=== PATIENT | male | born 1940 | race Caucasian/White ===

== ENCOUNTER → 2017-12-03 | Outpatient (CLI) | payer BC ==
[~2017-12-03] MED LIST: ASPI81EC PO; ATOR10 PO; B-COMPLEX WITH1 EAC1 PO; Bactrim Ds Tab1 EACH PO; CARV6.25 PO; CEPH500 PO; CYCL10 PO; Coq-10100 MG PO; DANDELION; Ginger250 MG PO; IODINE PO; MAGGLU250 PO; OREGANO PO; OSTERA TABLET1 EACH PO; PRED10 PO; QUIN10 PO; SOTO80 PO; SPIR25 PO; XARELTO20 MG PO; [UNRECOGNIZED DRUG - OTHER]
== END | disposition home or self-care (01) ==
LOC: LAB SHORT 09:18 → LAB 09:18
DX: R30.0 Dysuria (principal)
CPT/HCPCS: 87086

== ENCOUNTER 2018-02-08 06:54 | Emergency (ER) | payer BC ==
[~2018-02-08] VITALS: Ht 182.9 cm; Wt 87.1 kg
== END 2018-02-08 08:20 | disposition home or self-care (01) ==
LOC: ER 06:54
DX: R33.9 Retention of urine, unspecified (principal); I10 Essential (primary) hypertension; I48.91 Unspecified atrial fibrillation; I25.2 Old myocardial infarction; Z88.0 Allergy status to penicillin; Z79.899 Other long term (current) drug therapy
CPT/HCPCS: 51702; 51798; 99282

== ENCOUNTER → 2021-12-06 | Outpatient (CLI) | payer BC ==
[~2021-12-06] MED LIST changes: +METO50ER PO
== END | disposition home or self-care (01) ==
LOC: LAB 13:30 → LAB SHORT 13:30
DX: R21 Rash and other nonspecific skin eruption (principal)
CPT/HCPCS: 87070; 87205

== ENCOUNTER 2022-06-20 06:32 | Day surgery (SDC) | payer OTHER ==
[~2022-06-20] VITALS: Ht 182.9 cm; Wt 90.0 kg
[~2022-06-20 06:32] MED LIST changes: +ATOR40TA PO; +ENTRESTO 97 MG1 EACH PO; +METO100ER PO
--- NOTE | 2022-06-20 12:11 | NUR ---
PT AMBULATES TO RESTROOM AND BACK WITHOUT DIFF. VSS. NADN. PT RIGHT FEMORAL SITE & R VENOUS AC REMAINS CLEAR. NO BLEEDING OR HEMATOMA. DRESSING SELF WITHOUT DIFF. PT IV DC'D. CATH INTACT. PRESSURE DSG APPLIED. PT VERBALIZES UNDERSTANDING WRITTEN AND VERBAL INSTRUCTIONS. PT DC TO HOME VIA S/O BY SHARA
== END 2022-06-20 12:18 | disposition home or self-care (01) ==
LOC: MHTC 06:32
DX: I25.810 Atherosclerosis of coronary artery bypass graft(s) without angina pectoris (principal); E78.5 Hyperlipidemia, unspecified; I10 Essential (primary) hypertension; I48.0 Paroxysmal atrial fibrillation
CPT/HCPCS: 76937; 93457; 99152; A9270; C1769; C1894; J1644; J2250; J3010; J7030; J7050; Q9967

== ENCOUNTER 2022-12-08 15:41 | Emergency (ER) | payer BC ==
[~2022-12-08] VITALS: Ht 182.9 cm; Wt 86.2 kg
[2022-12-08 17:56] LABS: BASOPHILS ABSOLUTE AUTO 0.02 K/mm3 (0.00-0.23); BASOPHILS PERCENT AUTO 0 % (0-2); EOSINOPHILS ABSOLUTE AUTO 0.04 K/mm3 (0.00-0.68); EOSINOPHILS PERCENT AUTO 1 % (0-6); Hematocrit 39.1 % (37.0-53.0); Hemoglobin 13.6 g/dL (13.5-17.5); IMMATURE GRAN ABSOLUTE AUTO 0.01 K/mm3 (0.00-0.10); IMMATURE GRAN PERCENT AUTO 0 % (0-1); LYMPHOCYTES ABSOLUTE AUTO 0.81 K/mm3 (0.84-5.20); LYMPHOCYTES PERCENT AUTO 13 % (21-46); MONOCYTES PERCENT AUTO 11 % (4-13); Mean Corpuscular HGB Conc 34.8 g/dL (31.5-36.5); Mean Corpuscular Volume 95 fL (80-100); NEUTROPHILS PERCENT AUTO 75 % (41-73); Platelet Count 121 K/mm3 (150-400); RDW Coefficient Variation 13.5 % (11.7-14.2); Red Blood Cell Count 4.12 M/mm3 (4.30-5.90); White Blood Cell Count 6.28 K/mm3 (4.00-11.30)
[2022-12-08 18:04] LABS: Albumin, Blood 3.4 g/dL (3.4-5.0); Albumin/Globulin Ratio 1.1 (0.8-1.8); Bilirubin, Total 1.1 mg/dL (0.1-1.0); Bun/Creatinine Ratio 22.4 (12.0-20.0); Creatinine, Blood 1.34 mg/dL (0.60-1.20); Globulin, Blood 3.1 g/dL (2.2-4.0); Potassium, Blood 3.4 mmol/L (3.5-5.5); Total Protein, Blood 6.5 g/dL (6.4-8.2)
[2022-12-08] MEDS ORDERED: TAMS.4ER PO (18:04)
[2022-12-08] MEDS ORDERED: SOAANZ20 M3 PO (18:05)
[2022-12-08 20:00] VITALS: BP 123/86
[2022-12-08] MEDS ORDERED: TORSE20 PO (20:26)
== END 2022-12-08 21:05 | disposition home or self-care (01) ==
LOC: ER 15:41
PROVIDERS: Physician Assistant
DX: I11.0 Hypertensive heart disease with heart failure (principal); I50.23 Acute on chronic systolic (congestive) heart failure; I25.2 Old myocardial infarction; I48.91 Unspecified atrial fibrillation; I25.10 Atherosclerotic heart disease of native coronary artery without angina pectoris; I25.5 Ischemic cardiomyopathy; Z79.01 Long term (current) use of anticoagulants; Z79.899 Other long term (current) drug therapy; Z85.46 Personal history of malignant neoplasm of prostate; Z95.1 Presence of aortocoronary bypass graft; Z95.0 Presence of cardiac pacemaker
CPT/HCPCS: 71046; 80053; 83735; 83880; 84484; 85025; 93005; 93010; 96374; 99284-25; A9270; J1940

== ENCOUNTER 2023-03-12 22:58 | Inpatient (IN) | payer OTHER, BC ==
[~2023-03-12] VITALS: Ht 185.4 cm; Wt 86.0 kg
[~2023-03-12 22:58] MED LIST changes: +ENTRESTO 24 MG1 EACH PO; -ENTRESTO 97 MG1 EACH PO; +SOAANZ20 M3 PO; +TAMS.4ER PO; +TORSE20 PO
[2023-03-12 23:33] LABS: BASOPHILS ABSOLUTE AUTO 0.03 K/mm3 (0.00-0.23); BASOPHILS PERCENT AUTO 1 % (0-2); EOSINOPHILS ABSOLUTE AUTO 0.04 K/mm3 (0.00-0.68); EOSINOPHILS PERCENT AUTO 1 % (0-6); Hematocrit 45.1 % (37.0-53.0); Hemoglobin 15.5 g/dL (13.5-17.5); IMMATURE GRAN ABSOLUTE AUTO 0.01 K/mm3 (0.00-0.10); IMMATURE GRAN PERCENT AUTO 0 % (0-1); LYMPHOCYTES ABSOLUTE AUTO 1.25 K/mm3 (0.84-5.20); LYMPHOCYTES PERCENT AUTO 19 % (21-46); MONOCYTES ABSOLUTE AUTO 0.86 K/mm3 (0.16-1.47); MONOCYTES PERCENT AUTO 13 % (4-13); Mean Corpuscular HGB 34.4 pg (26.0-34.0); Mean Corpuscular HGB Conc 34.4 g/dL (31.5-36.5); Mean Corpuscular Volume 100 fL (80-100); Mean Platelet Volume 11.1 fL (9.1-12.4); NEUTROPHILS ABSOLUTE AUTO 4.26 K/mm3 (1.96-9.15); NEUTROPHILS PERCENT AUTO 66 % (41-73); Platelet Count 146 K/mm3 (150-400); RDW Coefficient Variation 15.9 % (11.7-14.2); RDW Standard Deviation 58.1 fL (35.1-46.3); White Blood Cell Count 6.45 K/mm3 (4.00-11.30)
[2023-03-12] MEDS ORDERED: SOAANZ20 M3 PO (23:34)
[2023-03-12] MEDS ORDERED: SPIRONOLACTONE25 MG PO (23:35)
[2023-03-13] VITALS (11 sets, daily range): BP systolic 98–132; BP diastolic 73–96
[2023-03-13 00:04] LABS: Albumin, Blood 3.5 g/dL (3.4-5.0); Bun/Creatinine Ratio 19.4 (12.0-20.0); Calcium, Blood 9.2 mg/dL (8.5-10.1); Creatinine, Blood 1.7 mg/dL (0.60-1.20); Globulin, Blood 3.6 g/dL (2.2-4.0); Potassium, Blood 3.4 mmol/L (3.5-5.5); Total Protein, Blood 7.1 g/dL (6.4-8.2)
[2023-03-13 00:52] LABS: Base Excess Venous 8.8 mmol/L; Bicarbonate Venous 30.4 mmol/L (24.0-30.0); PCO2 Venous 47.4 mmHg (38-42); pH Blood Venous 7.45 (7.34-7.37)
[2023-03-13 00:54] LABS: Phosphorus, Blood 3.7 mg/dL (2.5-4.9); Thyroid Stimulating Hormone 5.09 uIU/mL (0.360-4.800); Uric Acid, Blood 13.1 mg/dL (3.5-7.2)
[2023-03-13 01:13] LABS: Source, Urine Clean Catch
[2023-03-13 01:19] LABS: Bilirubin, Urine Neg (Neg); Blood, Urine 2+ (Neg); Glucose Qualitative, Urine Neg (Neg); Ketones, Urine Neg (Neg); Leukocyte Esterase, Urine 1+ (Neg); Nitrite, Urine Neg (Neg); Protein, Urine 1+ (Neg); Specific Gravity, Urine 1.015 (1.003-1.022); Urobilinogen, Urine NORM (Normal)
[2023-03-13 01:25] LABS: Appearance, Urine Clear (Clear); Bacteria Few /hpf; Color, Urine Yellow (P-Yellow); Squamous Epithelial Cells Few /hpf (Few); White Blood Cells, Urine 0-2 /hpf (0-5)
[2023-03-13 05:00] LABS: BASOPHILS ABSOLUTE AUTO 0.04 K/mm3 (0.00-0.23); BASOPHILS PERCENT AUTO 1 % (0-2); EOSINOPHILS ABSOLUTE AUTO 0.04 K/mm3 (0.00-0.68); EOSINOPHILS PERCENT AUTO 1 % (0-6); Hematocrit 40.2 % (37.0-53.0); Hemoglobin 13.9 g/dL (13.5-17.5); IMMATURE GRAN ABSOLUTE AUTO 0.02 K/mm3 (0.00-0.10); IMMATURE GRAN PERCENT AUTO 0 % (0-1); LYMPHOCYTES PERCENT AUTO 14 % (21-46); MONOCYTES ABSOLUTE AUTO 0.71 K/mm3 (0.16-1.47); MONOCYTES PERCENT AUTO 11 % (4-13); Mean Corpuscular HGB 34.8 pg (26.0-34.0); Mean Corpuscular HGB Conc 34.6 g/dL (31.5-36.5); Mean Corpuscular Volume 101 fL (80-100); Mean Platelet Volume 10.9 fL (9.1-12.4); NEUTROPHILS ABSOLUTE AUTO 4.54 K/mm3 (1.96-9.15); NEUTROPHILS PERCENT AUTO 73 % (41-73); Platelet Count 133 K/mm3 (150-400); RDW Coefficient Variation 15.8 % (11.7-14.2); RDW Standard Deviation 58.1 fL (35.1-46.3); White Blood Cell Count 6.25 K/mm3 (4.00-11.30)
[2023-03-13 05:16] LABS: Albumin, Blood 3.3 g/dL (3.4-5.0); Bilirubin, Total 1.6 mg/dL (0.1-1.0); Bun/Creatinine Ratio 19.9 (12.0-20.0); Calcium, Blood 9.1 mg/dL (8.5-10.1); Creatinine, Blood 1.71 mg/dL (0.60-1.20); Globulin, Blood 3.3 g/dL (2.2-4.0); Potassium, Blood 3.3 mmol/L (3.5-5.5); Total Protein, Blood 6.6 g/dL (6.4-8.2)
[2023-03-13] MEDS ORDERED: METO50ER PO (05:54)
[2023-03-13] MEDS ORDERED: JARDIANCE10 MG PO (05:56)
[2023-03-13 08:32] LABS: International Normalized Ratio 1.66; Prothrombin Time Results 16.9 Sec (9.7-11.5)
--- NOTE | 2023-03-13 14:22 | NUR ---
Shift Summary Pt alert and oriented X4; calm and cooperative with care. Pt resting in bed, sitting "as far up as possible". Pt placed on 2l o2 via nc this am. Pt denies pain, chest pain, sob, nausea, dizziness/numbness. Tele v paced, bp stable. Abd soft, nontender. Edema noted from ble up to bilateral flanks. Other vss. Minimal urine output noted, bladderscan <400cc, Dr Gaviria notified, new order entered. Report given to rn assuming care of patients.
--- NOTE | 2023-03-13 15:30 | NUR ---
ASSUMED CARE REPORT TAKEN FROM LINH MERCADO. THIS RN ASSUMED CARE OF PT AT 1415. VSS AT TIME OF TRANSFER OF CARE. PT RESTING IN BED. SPO2 >90% ON 2L NC. V PACED ON TELEMETRY, BP STABLE. SPOUSE AT BEDSIDE. CALL LIGHT WITHIN REACH, BED IN LOWEST POSITION.
--- NOTE | 2023-03-13 17:12 | NUR ---
END OF SHIFT NOTE PT A&OX4 T/O SHIFT, PLEASANT AND COOPERATIVE WITH CARE. CALLS APPROPRIATELY AND MAKES NEEDS KNOWN TO STAFF. HR 80-90'S, PACED. SBP 104 THIS AFTERNOON. SPO2 >95% ON 2L O2 VIA NC; PT REPORTS FEELING SOB WITH EXERTION, ABLE TO RECOVER W/O DESATS. HOB ELEVATED. EDEMA NOTED ON BLE UP TO FLANKS, BUMEX ADMINISTERED PER EMAR. PT ABLE TO VOID IN URINAL W/ MINIMAL ASSISTANCE. SPOUSE AT BEDSIDE. PT RESTING IN BED, DECLINES DINNER AT THIS TIME. BLE SCD'S WORN T/O SHIFT, WOUND DRESSINGS IN PLACE. PT INFORMED THIS RN THAT HE DC'D HIS HOME JARDIANCE FEELING LIKE IT WAS CAUSING HIM TO HALLUCINATE; SPOUSE STATES THAT HALLUCINATIONS HAVE BEEN PRESENT AFTER DISCONTINUING THE MEDICATION. NO HALLUCINATIONS THIS SHIFT. NO OTHER EVENTS. CALL LIGHT WITHIN REACH, BED IN LOWEST POSITION. WILL REPORT TO ONCOMING NOC RN.
[2023-03-14] VITALS (19 sets, daily range): BP systolic 79–108; BP diastolic 49–80
[2023-03-14 04:34] LABS: Bun/Creatinine Ratio 20.2 (12.0-20.0); Calcium, Blood 8.8 mg/dL (8.5-10.1); Creatinine, Blood 1.63 mg/dL (0.60-1.20); Potassium, Blood 3.3 mmol/L (3.5-5.5)
--- NOTE | 2023-03-14 06:03 | NUR ---
SHIFT SUMMARY ADMIT FOR PLEURAL EFFUSION, 2L O2 NC, BIOX 98%. VENTRICULAR PACED@95. BP WILL SHOW HYPOTENSIVE BUT REBOUNDS WHEN PT AWAKENS. EDEMA TO BL LEGS TO THIGH, SCD TO R LE. BLLE WRAPPED W/ GAUZE, VISIBLE BLISTER TO [employer] [place] AND OPEN AREA THAT APPEARS TO HAVE BEEN A PREVIOUS BLISTER. TENDER TO LE. PT REPORTS UNABLE TO SLEEP LYING DOWN THEREFORE HAS SLEPT W/ HEAD OF BED UP AND TILTED TO SIDE. C/O PAIN TO COCCYX. +LABS GRAM VARIABLE W/ BACILLI ALTHOUGH 2ND CULTURE SHOWN NO GROWTH. PROVIDER NOTIFIED W/ NO NEW ORDERS AT THIS TIME. PT VERY PLEASANT AND COOPERATIVE. CALL LIGHT W/IN REACH. WILL REPORT OFF TO ONCOMING STAFF.
--- NOTE | 2023-03-14 11:04 | NUR ---
MORNING NOTE THIS RN ASSUMED CARE AT APPROX 0715. PT AOX4. PLEASANT, COOPERATIVE WITH CARE. ASKS QUESTIONS NEEDED. VSS. BP SOFT, SBP 100's-110's. MD AWARE. IV BUMEX ADMINISTERED PER EMAR. ALDACTONE HELD PER MD. DENIES CHEST PAIN OR PRESSURE. TELEMETRY SHOWING V PACED 100's-130's. PACER INTERROGATION PERFORMED THIS MORNING. AT APPROX 0920, A 11 BEAT RUN OF VTACH OCCURRED. PT ASYMPTOMATIC. MD NOTIFIED BY THIS RN, NO NEW ORDERS RECEIVED. PT ON 2L VIA NC, SATS >90%. THORACENTESIS PERFORMED THIS MORNING, PO ANTICOAGULANT HELD THIS MORNING. BANDAID IN PLACE, C/D/I. PT IS A 1P ASSIST IN ROOM TO CHAIR OR BSC. HX OF PROSTATE CA, VOIDING SMALL AMOUNTS AT A TIME. ABLE TO USE URINAL INDEPENDENTLY. BM THIS MORNING. BEDBATH CURRENTLY BEING PERFORMED BY PCT. AT BEDSIDE. CALL LIGHT IN REACH.
[2023-03-14 11:13] LABS: Automated BF WBC Count 0.181 K/mm3 (0-999)
[2023-03-14 11:14] LABS: Body Fluid WBC Count 181 /mm3 (0-999)
[2023-03-14 11:20] LABS: Lactate Dehydrogenase, Body Fl 55 U/L; Protein, Body Fluid 1.6 g/dL
--- NOTE | 2023-03-14 12:08 | NUR ---
UPDATE THIS RN RCVD CALL FROM MD PEGUERO WITH ORDER TO PERFORM BLADDER SCAN DUE TO CONCERN FOR RETENTION, NOTIFY IF GREATER THAN 350ML. THIS RN PERFORMED BLADDER SCAN, 400ML SHOWN. MD PEGUERO CONTACTED, RCVD ORDER TO PERFORM A STRAIGHT CATH PROCEDURE NOW, TO PERFORM A BLADDER SCAN Q6HRS, AND TO INSERT LATHAM CATHETER IF GREATER THAN >350ML ON NEXT BLADDER SCAN. ALSO NOTIFIED MD THAT HEART RATE IS SUSTAINING 120-130. PT TO START PO METOPROLOL TOMORROW, 03/15. RCVD ORDER TO EDIT METOPROLOL TO START TODAY IF SBP SUSTAINING >100. CURRENT SBP 90's. WILL WAIT TO EDIT ORDER UNTIL SUSTAINING >100 SBP.
[2023-03-14 12:11] LABS: RBC Count, Body Fluid 151 /mm3 (0-0)
[2023-03-14 12:24] LABS: Appearance, Body Fluid Clear (Clear); Color, Body Fluid Yellow (None-Yellow); Total Cell Count, Body Fluid 100
--- NOTE | 2023-03-14 14:49 | NUR ---
UPDATE CURRENT BLOOD PRESSURE 79/67. MAP >60. THIS RN NOTIFIED MD PEGUERO REGARDING SOFT BP. RECEIVED ORDER FOR PO MIDRODRINE TID AND TO HALF THE DOSE OF ENTRESTO.
--- NOTE | 2023-03-14 14:56 | NUR ---
Pt resting on edge of bed upon arrival. Pt's spouse and friends at bedside. Brief review of plan of care. Engaged in therapeutic discussion regarding AD/POLST. Pt and family agreeable to complete. Educated on POLST. Discussed options to choose from and answered questions. Assisted with completing POLST per Pt's request. POLST hung on Pt's white board for hospitalist to sign during rounds. Pt's wishes on POLST are DNR and Limited Treatment. Educated on advanced directive. Instructed on each section to complete and educted on meanings of life support. Pt and spouse will work on completing AD. Listened as Pt expresses concerns regarding billing of his insurance. He reports having a workmans comp claim in [place] which will take care of his hospital stay related to cardiac and instead he regience [employer] keeps getting billed. Instructed concerns will be addressed to Pt advocate or proper channels. Palliative Care will remain available
--- NOTE | 2023-03-14 15:08 | NUR ---
UPDATE ATTEMPTED TO PERFORM STRAIGHT CATH PROCEDURE EARLIER. PT REQUESTING TO WAIT UNTIL AFTER LUNCH. WAS ABLE TO VOID 175ML OUT. 400ML TOTAL NOTED WITH BLADDER SCAN. MULTIPLE VISITORS AND PALLATIVE CARE AT BEDSIDE AFTER LUNCH. THIS RN CHOSE TO WAIT TO PERFORM BLADDER SCAN AND STRAIGHT CATH PROCEDURE UNTIL AFTER VISITORS AND PALLATIVE CARE LEAVE BEDSIDE. BLADDER SCAN PERFORMED, 375 ML NOTED. PT REFUSING STRAIGHT CATH AT THIS TIME, STATING "GIVE ME 30 MINUTES TO REST." WILL RETURN TO BEDSIDE IN APPROX 30 MINUTES TO ATTEMPT TO PERFORM PROCEDURE. MOST CURRENT BLOOD PRESSURE 92/65 (76). PO MIDODRINE ADMINISTERED PER EMAR. WILL CONTINUE TO MONITOR. AT BEDSIDE. CALL LIGHT IN REACH.
--- NOTE | 2023-03-14 15:41 | NUR ---
UPDATE THIS RN AND LINH RN TO BEDSIDE TO PERFORM STRAIGHT CATH PROCEDURE. PT REFUSING, STATING "I'M JUST NOT READY YET." EDUCATION PROVIDED REGARDING URINARY RETENTION. WILL CONTINUE TO ATTEMPT TO PERFORM PROCEDURE PER ORDER. BLOOD PRESSURE OBTAINED. CURRENT BP 96/60 (72). AT BEDSIDE. CALL LIGHT IN REACH.
--- NOTE | 2023-03-14 19:22 | NUR ---
END OF SHIFT NOTE PT REMAINS AOX4. EXPERIENCES EPISODES OF INCREASED ANXIETY. VS REMAIN STABLE. BLOOD PRESSURE SOFT THROUGHOUT, RECEIVED ORDER FOR SCHEDULED MIDODRINE (SEE PREVIOUS NOTE), CURRENT SBP 90's. HEART RATE SUSTAINING 120's-130's AT TIMES. CURRENT RATE 70's-90's. THORACENTESIS PERFORMED TODAY. FOLLOWING THORACENTESIS, WAS ABLE TO TITRATE OXYGEN USE FROM 2L VIA NC TO ROOM AIR, SATS >90%. BM THIS SHIFT. DIFFICULTY VOIDING NOTED THROUGHOUT SHIFT (SEE PREVIOUS NOTES). THIS RN ATTEMPTED STRAIGHT CATH PROCEDURE THIS EVENING, UNABLE TO INSERT DUE TO PROSTATE. MD CONTACTED, RECEIVED ORDER FOR XYLOCAINE AND LATHAM CATHETER PLACEMENT DUE TO DIFFICULT INSERTION. GIBRAN MERCADO ATTEMPTED TO INSERT LATHAM CATHETER, UNABLE TO DO SO. MODERATE BLEEDING AT INSERTION SITE DUE TO MULTIPLE ATTEMPTS. MD CONTACTED WITH UPDATE. MD TO POSSIBLY CONTACT UROLOGY TOMORROW MORNING, NO NEW ORDERS RECEIVED. IV BUMEX HELD DUE TO RETENTION. PT IS A 1P ASSIST IN ROOM. AND MULTIPLE VISITORS AT BEDSIDE THROUGHOUT SHIFT. PALLATIVE CARE AT BEDSIDE THIS SHIFT TO DISCUSS PLAN OF CARE, INCLUDING POLST FORM. CALL LIGHT IN REACH. REPORT GIVEN TO NIGHT RN.
[2023-03-15] VITALS (20 sets, daily range): BP systolic 80–107; BP diastolic 48–75
--- NOTE | 2023-03-15 05:16 | NUR ---
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 PT IS A/OX4. HEART SOUNDS REGULAR, LUNG SOUNDS CLEAR. PT WAS V PACED T/O THE NOC. PT HR WAS 80-130 WHEN AGITATED. PT WAS VERY TEARFUL AT START OF SHIFT DUE TO HAVING TO BE CATHETERIZED. PT STATES THAT "THE MEMBRANE IS BROKEN AND IM SCARED TO PEE". WHEN ASKED IF HE HAD TO PEE PT STATES THAT HE DOESNT YET BUT IS THINKING ABOUT IT AND IT MAKES HIM UPSET. PT ONLY URINATED ABOUT 40CC OF URINE. PT REFUSED TO BE BLADDER SCANNED, STATING IT JOAQUIN WAIT TILL MORNING. PT ALSO REFUSED LABS FOR SAME REASON. PT HAD DECREASED BP DURING THE NOC; WANTED THIS NURSE TO NOT WAKE PT SO HE COULD REST BUT THIS NURSE EDUCATED ABOUT IMPORTANCE OF KEEPING MAP ABOVE 65. HOSPITALIST NOTIFED AND REVIEWED CHART. THIS NURSE HAD LONG TALK WITH PT . PT THINKS CANCER HAS SPEAD AND WANTS MORE TESTING. PT DOESNT HAVE ONCOLOGIST BUT WOULD LIKE ONE. PT STATES THE SHE KNOWS PT POSSIBLY NEEDS SURGERY BUT KNOWS PT MIGHT NOT SURVIVE DUE TO HEART AND WANTS PT TO BE COMFORTABLE. THIS NURSE EDUCATED ABOUT HOSPICE AND PALLITIVE CARE. CONSULT ALREADY IN.
[2023-03-15 09:50] LABS: Bun/Creatinine Ratio 19.8 (12.0-20.0); Creatinine, Blood 1.62 mg/dL (0.60-1.20); Magnesium, Blood 2.1 mg/dL (1.6-2.4); Potassium, Blood 3.5 mmol/L (3.5-5.5)
--- NOTE | 2023-03-15 10:21 | NUR ---
care assumption upon care assumption, pt a&ox4. sp02>90% on ra-2l nc prn. Telemetry shows paced, hr 80's-130's (when up/standing). BP soft. midodrine scheduled. Pt refused labs last night. educated pt on need to know levels, pt agreed to have labs drawn. Pt able to void 140 ml's this am. bladder scan after urination showed >408. MD Villaseñor in room. MD villaseñor w/ orders to hold bumex and states will reach out to urologist. pt in good spirits today. up to b[facility]
--- NOTE | 2023-03-15 14:30 | NUR ---
Brief supportive visit this afternoon with spouse at bedside. Pt resting with his eyes closed with no S/S of distress at this time. Breif review of plan of care with spouse. Palliative Care will remain available
--- NOTE | 2023-03-15 18:39 | NUR ---
shift summary MD Quintero in room this afternoon to consult for suprapubic cath. Consents signed. Pt to procedure this afternoon. Arrived back in room approx 1800. drowsy, but able to answer questions/follow commands. sp02>90% on 2l nc. telemetry showed paced, hr 80's. bp soft. sp w/ dressing, no bleeding, no bruising noted. draining yellow urine to bag. in room. call light in reach.
[2023-03-16] VITALS (10 sets, daily range): BP systolic 85–107; BP diastolic 50–80
[2023-03-16 04:03] LABS: Bun/Creatinine Ratio 18.4 (12.0-20.0); Calcium, Blood 8.5 mg/dL (8.5-10.1); Creatinine, Blood 1.58 mg/dL (0.60-1.20); Potassium, Blood 3.8 mmol/L (3.5-5.5)
--- NOTE | 2023-03-16 04:49 | NUR ---
SHIFT SUMMARY ASSUMED CARE OF PT AT 1900. PT IS A/OX4. PT HAD A BETTER NIGHT. PT SLEPT T/O THE NOC. AT BEDSIDE. SUPRAPUBIC CATH SITE FREE IF REDNESS. URINE WAS DRAINING YELLOW URINE AT START OF SHIFT BUT THEN TURNED RED. PT C/O PAIN AT SITE ONCE, MEDICATED PER EMAR. PT STATED PAIN WAS TOLERABLE BUT ANNOYING. PT BP REMAINS SOFT BUT PT ASYMTOMATIC.
--- NOTE | 2023-03-16 18:15 | NUR ---
NOTE PT AWAKE TELLING STORIES. HEART RATE THIS MORNING BEFORE MORNING MIDODRINE/BUMES 127-PACED. HIS HEART RATE HAS MAINTAINED 100% V PACED IN THE 70'S THE REST OF THE DAY UNTIL DINNER WHEN HE STARTED TELLING STORIES AND LAUGHING. HEART RATE INCREASED TO 127 PACED. VSS FOR PT. RLQ SUPRA PUBIC CATHETER DRAINING DARK, LOAN URINE. THE [place] COLORED URINE FROM THIS MORNING HAS RESOLVED. NEW IV PLACED D/T OLD IV LEAKING. CONTINUE POC.
[2023-03-17] VITALS (16 sets, daily range): BP systolic 86–116; BP diastolic 52–87
--- NOTE | 2023-03-17 06:02 | NUR ---
PT HAS SUPRAPUBIC CATH IN PLACE. PROSTATE CA WITH METS. DR. BAUER HAS PRIORITIES FOR MEDICATIONS IN THE AM; PLEASE CALL MD FOR INSTRUCTIONS TO GIVE MORNING MEDICATIONS, DUE TO BLOOD PRESSURE AND PULSE. BRUISING NOTED
[2023-03-17 08:55] LABS: Bun/Creatinine Ratio 18.8 (12.0-20.0); Calcium, Blood 8.8 mg/dL (8.5-10.1); Creatinine, Blood 1.54 mg/dL (0.60-1.20); Potassium, Blood 3.6 mmol/L (3.5-5.5)
--- NOTE | 2023-03-17 17:59 | NUR ---
SUMMARY- PT A/O X3-4, SBA TO BSC TODAY, SAT UP FOR 30MIN ATTEMPTING TO HAVE BM, THIS TIRED HIM OUT AND HE REFUSED PHYSICAL THEARPY THEREAFTER. PT TOLERATED HALF OF BREAKFAST AND DECLINED LUNCH AND DINNER EXCEPT FOR SIPPING ON ENSURE. STARTING METOPROLOL BACK TODAY FOR RATE CONTROL, AT THE SAME TIME ADDING MIDODRINE TO HOLD BP, HOLDING OFF ON DIURESING TODAY. RATE THIS AM BEFORE METOPROLOL WAS V PACED 130'S, CAME DOWN NICELY PACED 80-90'S ALL DAY. BP SOFT AT 0900 TODAY 30 MIN AFTER METOPROLOL, THAN MANITAINED SBP 110'S AND MAP > 70. PT ON ROOM AIR ALL DAY SATS 94%. LUNGS CTA, SLIGHT DIM BASES. SP DRAINING MED LOAN URINE. STARTED [place] FOR BOWEL ASSIST. LAST BM 03/15, UNABLE TO PASS BM TODAY AFTER ATTEMPTING. IN ROOM ALL DAY, INVOLVED IN CARE.
[2023-03-18] VITALS (10 sets, daily range): BP systolic 88–115; BP diastolic 55–81
--- NOTE | 2023-03-18 04:22 | NUR ---
PT REPORTING AMA @0900 INFORMED BY LAB THAT PT REPORTING LEAVING @0900 THIS MORNING. AFTER DISCUSSION W/ PT REGARDING CONCERNS W/ DISCONTINUED BLOOD THINNERS, HE REPORTS HE CAN SELF MEDICATE AT HOME W/ ASPIRIN. I HAVE ENCOURAGED PT TO DISCUSS OPTIONS AND QUESTIONS W/ PROVIDER PRIOR TO LEAVING. AFTER SPEAKING W/ NURSING SUP OF PT REPORTS, IT IS NOTED THAT PT TO RESUME ELIQUIS TODAY. PT AGREES TO WAIT FOR PROVIDER TO ANSWER QUESTIONS AND/OR UPDATE ORDERS. PT REPORTS HE IS FOLLOWED BY DR. WHEATLEY FOR CARDIO AND HE HAS YET TO SEE THIS PROVIDER DURING THIS HOSPITALIZATION.
[2023-03-18 05:07] LABS: Bun/Creatinine Ratio 19.7 (12.0-20.0); Creatinine, Blood 1.47 mg/dL (0.60-1.20); Potassium, Blood 3.6 mmol/L (3.5-5.5)
--- NOTE | 2023-03-18 06:16 | NUR ---
SHIFT SUMMARY PT ADMIT FOR DIFFICULTY BREATHING, RESULTING IN PLEURAL EFFUSION. THOROCENT COMPLETED 03/14 AND SUPRA PUBIC CATH PLACED 03/15. DRAINING LOAN URINE W/ SEDIMENT AND BLOOD VISUALIZED, DRESSING C/D/I. TELE IN PLACE, V- PACED @130 BPM CURRENTLY. SEE PREVIOUS NOTES REGARDING PT REPORTING AMA THIS A.M. IN ROOM W/ PT, REPORTS LICENSED NURSE EXPERIENCE. PLANS TO RESTART PT ON ELIQUIS TODAY PER PROVIDER NOTES, CALL LIGHT W/IN REACH.
--- NOTE | 2023-03-18 17:00 | NUR ---
SHIFT SUMMARY PT IS A&OX4, BUT HAS BEEN VERY FLAT TODAY. THIS AM HE WAS CRYING ON AND OFF ABOUT WANTING TO GO HOME, WORRIED ABOUT HIS NEEDING HER MEDICATIONS, AND CONCERNED ABOUT MEDICATIONS. WE HAD AN EXTENSIVE CONVERSATION W/ DR. PEGUERO ABOUT MEDICATIONS, AND WE WERE ABLE TO GET THE PT TO SETTLE DOWN MORE. HE UNDERSTANDS THAT IT IS IMPORTANT WE SEND HIM HOME W/ THE APPROPRIATE MEDICATIONS SO HE DOES NOT HAVE ANY ISSUE'S. SINCE THE CONVERSTAION THE PT HAS BEEN MORE OPT TO STAYING AT THE HOSPITAL. WE STARTED HIM BACK ON HIS HOME MEDICAITONS, ELIQUIS, AND ARE GIVING HIM MIDODRINE FOR BP SUPPORT. BP SOFT, DR. PEGUERO AWARE. NO FURTHER ORDERS AT THIS TIME. PER DR. PEGUERO WE NEED TO MONITOR THE S.P. LATHAM BAG FOR ANY SIGNS OF BLEEDING. OUTPUT HAS NOT CHANGED AND HAS A DARK YELLOW/BROWN TINT. PT IS PACED IN THE 70'D-80'D. WHEN ANXIOUS HIS HR CAN JUMP TO 130'S AND HE BECOMES SOB. PER FAMIYL REQUEST, DR. PEGUERO HAD DR. WHEATLEY SEE THE PT BECAUSE HE SEE'S THIM OUT PT. HE TOLD THE PT/SPOUSE THAT HE WILL LOOK AT HIS MEDICATIONS TOMORROW AND MAKE CHANGES WHERE IT SEEMS FIT. NO OFFICIAL CONSULT AT THIS TIME. FIRE IGNITION RISK HAS BEEN ASSESSED AND EDUCAITON PROVIDED. NO RISK NOTED AT THIS TIME.
[2023-03-19] VITALS (7 sets, daily range): BP systolic 87–105; BP diastolic 56–75
[2023-03-19 04:47] LABS: Bun/Creatinine Ratio 24.3 (12.0-20.0); Calcium, Blood 8.9 mg/dL (8.5-10.1); Creatinine, Blood 1.4 mg/dL (0.60-1.20); Potassium, Blood 3.7 mmol/L (3.5-5.5)
--- NOTE | 2023-03-19 06:23 | NUR ---
SHIFT SUMMARY NO ACUTE CHANGES NOTED THROUGH THE NIGHT, PT IS A&O, CALLS FOR ASSISTANCE PRN, RESP UNLABORED, ON RA, BP REMAINS SOFT, ASYMPTOMATIC, PACED 70'S-80'S, DENIES CP/PRESSURE, TOLERATING PO INTAKE, LOAN URINE NOTED IN LATHAM BAG, REDNESS/WARMTH REMAINS AROUND CATH INCERTION SITE, EXTREMITIES ELEVATED ON PILLOWS, PT IS RESTING QUIETLY AT THIS TIME, CALL LIGHT IN REACH, WCTM & REPORT TO DAY RN.
--- NOTE | 2023-03-19 16:58 | NUR ---
shift summary pt hypotensive with sbp in the 80s this am. bp increased to 101/75. midodrine order changed to prn per md. pt c/o buttocks pain this afternoon. repositioning encouraged and perventative foam placed to sacrum. pt ambulated hallways twice today and encouraged again to after dinner to help with sacral pain. tylenol given for this. suprapubic catheter got tugged a little while patient was repositioning today. minimal bleeding at insertion site noted and has now stopped. dressing removed & site cleansed. split gauze placed over site. pt c/o some pain when tube is moved since this event. good urine output continued in catheter bag.
--- NOTE | 2023-03-19 20:52 | NUR ---
ASSUMPTION OF CARE THIS RN ASSUMED CARE OF PATIENT AT 1900. REPORT TAKEN FROM SHANNON MERCADO. PER PREVIOUS RN, SP CATHETER WAS SLIGHTLY PULLED WHILE MOVING PATIENT AND BEGAN TO BLEED. PER PREVIOUS RN PRESSURE DRESSING WAS PLACED AT APPROXIMATELY 1900. AT THIS TIME GAUZE UNDER TAPE APPEARS TO BE SKILLED NURSING SATURATED WITH BLOOD. PRESSURE DRESSING LEFT IN PLACE TO NOT DISTURB CLOT. SLIGHT RED TINGED URINE NOTED IN URINE COLLECTION BAG. SBP 90'S MEDICATED PER EMAR WITH MIDODRINE. PACED RHYTHM IN THE 70/80'S. ON RA WITH SPO2 >92%. BED IN LOWEST POSITION AND CALL LIGHT WITHIN REACH.
[2023-03-20 04:03] VITALS: BP 100/60
--- NOTE | 2023-03-20 05:10 | NUR ---
SHIFT SUMMARY SEE PREVIOUS NOTE. NO ACUTE CHANGES SINCE PREVIOUS NOTE. PRESSURE DRESSING REMAINS IN PLACE ON SP CATHETER SITE; NO FURTHER BLEEDING NOTED ON DRESSING. VITALS REMAIN STABLE AND UNCHANGED. SBP 100'S AT THIS TIME. PT STATES HE IS REPOSITIONING SELF IN BED AND REFUSED ASSISTANCE WITH PILLOWS. SBA WITH TRANSFERS. URINE WAS RED TINGED AT THE BEGINNING OF THE SHIFT BUT IS NOW MORE LOAN. BED IN LOWEST POSITION AND CALL LIGHT WITHIN REACH. THIS RN WILL REPORT TO ONCOMING DAYSHIFT RN.
[2023-03-20 05:55] LABS: Albumin, Blood 2.6 g/dL (3.4-5.0); Anion Gap 2 mmol/L (6-16); Blood Urea Nitrogen 40 mg/dL (8-24); Bun/Creatinine Ratio 25.8 (12.0-20.0); CO2, Blood 37 mmol/L (21-32); Calcium, Blood 8.9 mg/dL (8.5-10.1); Chloride, Blood 104 mmol/L (98-108); Creatinine, Blood 1.55 mg/dL (0.60-1.20); Glomerular Filtration Rate 44 (60-); Glucose, Blood 100 mg/dL (70-99); Phosphorus, Blood 4.3 mg/dL (2.5-4.9); Potassium, Blood 3.9 mmol/L (3.5-5.5); Sodium, Blood 143 mmol/L (136-145)
[2023-03-20 07:12] VITALS: BP 103/64
[2023-03-20 10:25] VITALS: BP 105/57
[2023-03-20] MEDS ORDERED: TORS10 PO (11:27)
[2023-03-20] MEDS ORDERED: MIDO5 PO (14:12)
[2023-03-20] MEDS ORDERED: ELIQUIS2.5 MG PO (14:27)
[2023-03-20 14:40] VITALS: BP 100/74
--- NOTE | 2023-03-20 15:08 | NUR ---
DISCHARGE PT DISCHARGED AFTER DC INSTRUCTIONS, NEW MEDS, AND FOLLOW UP INSTRUCTIONS WERE COMPLETED. DRESSING TO SUPRAPUBIC CATHETER CHANGED PRIOR TO DC. IV REMOVED & INTACT. ONE DOSE OF MIDODRINE GIVEN PRIOR TO DC FOR SBP OF 100. PT EDUCATED ON SUPRAPUBIC CATHETER CARE. PT AND DENIED FURTHER NEED FOR INSTRUCTION AT THIS TIME. PT WHEELED OUT BY AIDE & DRIVEN HOME BY .
== END 2023-03-20 14:56 | disposition home health service (06) | DRG 291 ==
LOC: ER 22:58 → PCU 22:59
PROVIDERS: Emergency Medicine; Family Medicine; Internal Medicine; ADMIT Student in an Organized Health Care Education/Training Program
PROC: B24BZZZ Ultrasonography of Heart with Aorta (ICD-10-PCS; 2023-03-13)
PROC: 0W993ZZ Drainage of Right Pleural Cavity, Percutaneous Approach (ICD-10-PCS; 2023-03-14)
PROC: 0T9B30Z Drainage of Bladder with Drainage Device, Percutaneous Approach (ICD-10-PCS; principal; 2023-03-15)
DX: I13.0 Hypertensive heart and chronic kidney disease with heart failure and stage 1 through stage 4 chronic kidney disease, or unspecified chronic kidney disease (principal); I50.23 Acute on chronic systolic (congestive) heart failure; J96.01 Acute respiratory failure with hypoxia; N17.9 Acute kidney failure, unspecified; E87.20 Acidosis, unspecified; R33.9 Retention of urine, unspecified; C61 Malignant neoplasm of prostate; E87.6 Hypokalemia; D69.6 Thrombocytopenia, unspecified; E79.0 Hyperuricemia without signs of inflammatory arthritis and tophaceous disease; N18.30 Chronic kidney disease, stage 3 unspecified; I08.1 Rheumatic disorders of both mitral and tricuspid valves; I27.20 Pulmonary hypertension, unspecified; I95.9 Hypotension, unspecified; I48.0 Paroxysmal atrial fibrillation; I25.2 Old myocardial infarction; Z95.1 Presence of aortocoronary bypass graft; Z88.0 Allergy status to penicillin; Z95.810 Presence of automatic (implantable) cardiac defibrillator; Z28.21 Immunization not carried out because of patient refusal
CPT/HCPCS: 32555; 36415; 51102; 71045; 76700; 76937; 80048; 80053; 80069; 81001; 82550; 82803; 83605; 83615; 83735; 83880; 84100; 84157; 84443; 84484; 84550; 85025; 85379; 85610; 87040; 87070; 87075; 87205; 88108; 88305; 89051; 93005; 93010; 93284; 94760; 96365; 96366; 96367; 96375; 97116; 97161; 97530; 99152; 99153; 99285-25; A9270; C1729; C1769; C1894; C8929; G0378; J0696; J1940; J2250; J3010; J3480; J7030; J7050; Q9957; Q9967

== ENCOUNTER 2023-04-19 07:37 | Day surgery (SDC) | payer OTHER, BC ==
[~2023-04-19 07:37] MED LIST changes: +ELIQUIS2.5 MG PO; +JARDIANCE10 MG PO; +MIDO5 PO; +SPIRONOLACTONE25 MG PO; +TORS10 PO
== END 2023-04-19 22:56 | disposition home or self-care (01) ==
LOC: WOUND 07:37
DX: L97.812 Non-pressure chronic ulcer of other part of right lower leg with fat layer exposed (principal); L97.822 Non-pressure chronic ulcer of other part of left lower leg with fat layer exposed; I73.9 Peripheral vascular disease, unspecified; I87.2 Venous insufficiency (chronic) (peripheral); E78.5 Hyperlipidemia, unspecified; I25.810 Atherosclerosis of coronary artery bypass graft(s) without angina pectoris; I11.0 Hypertensive heart disease with heart failure; I50.9 Heart failure, unspecified; J45.909 Unspecified asthma, uncomplicated; G47.30 Sleep apnea, unspecified; I25.2 Old myocardial infarction

== ENCOUNTER 2023-04-26 02:53 | Day surgery (SDC) | payer OTHER, BC | END 2023-04-26 22:59 | disposition home or self-care (01) | LOC: WOUND 02:53 | DX: L97.812 Non-pressure chronic ulcer of other part of right lower leg with fat layer exposed (principal); L97.822 Non-pressure chronic ulcer of other part of left lower leg with fat layer exposed; I73.9 Peripheral vascular disease, unspecified; I87.2 Venous insufficiency (chronic) (peripheral); E78.5 Hyperlipidemia, unspecified; I25.810 Atherosclerosis of coronary artery bypass graft(s) without angina pectoris; I50.9 Heart failure, unspecified | CPT/HCPCS: A9270; G0463 ==

== ENCOUNTER 2023-05-03 04:31 | Day surgery (SDC) | payer OTHER, BC | END 2023-05-03 23:04 | disposition home or self-care (01) | LOC: WOUND 04:31 | DX: L97.812 Non-pressure chronic ulcer of other part of right lower leg with fat layer exposed (principal); L97.822 Non-pressure chronic ulcer of other part of left lower leg with fat layer exposed; I73.9 Peripheral vascular disease, unspecified; I87.2 Venous insufficiency (chronic) (peripheral); I25.810 Atherosclerosis of coronary artery bypass graft(s) without angina pectoris; E78.5 Hyperlipidemia, unspecified; I50.9 Heart failure, unspecified ==

== ENCOUNTER 2023-05-17 04:52 | Day surgery (SDC) | payer OTHER, BC | END 2023-05-17 22:52 | disposition home or self-care (01) | LOC: WOUND 04:52 | DX: L97.819 Non-pressure chronic ulcer of other part of right lower leg with unspecified severity (principal); L97.829 Non-pressure chronic ulcer of other part of left lower leg with unspecified severity; I25.810 Atherosclerosis of coronary artery bypass graft(s) without angina pectoris; I73.9 Peripheral vascular disease, unspecified; I87.2 Venous insufficiency (chronic) (peripheral); E78.5 Hyperlipidemia, unspecified | CPT/HCPCS: G0463 ==

== ENCOUNTER 2023-06-14 01:29 | Day surgery (SDC) | payer OTHER, BC | END 2023-06-14 23:20 | disposition home or self-care (01) | LOC: WOUND 01:29 | DX: I89.0 Lymphedema, not elsewhere classified (principal); I50.9 Heart failure, unspecified; L97.812 Non-pressure chronic ulcer of other part of right lower leg with fat layer exposed; L97.202 Non-pressure chronic ulcer of unspecified calf with fat layer exposed; I25.810 Atherosclerosis of coronary artery bypass graft(s) without angina pectoris; I73.9 Peripheral vascular disease, unspecified; I87.2 Venous insufficiency (chronic) (peripheral); E78.5 Hyperlipidemia, unspecified | CPT/HCPCS: G0463 ==

== ENCOUNTER 2023-06-21 01:54 | Day surgery (SDC) | payer OTHER, BC ==
[2023-06-21] MEDS ORDERED: Lidocaine HCl 4% Topical Soln 50 ML BTL ONE (11:32)
== END 2023-06-21 22:52 | disposition home or self-care (01) ==
LOC: WOUND 01:54
DX: I89.0 Lymphedema, not elsewhere classified (principal); L97.812 Non-pressure chronic ulcer of other part of right lower leg with fat layer exposed; L97.202 Non-pressure chronic ulcer of unspecified calf with fat layer exposed; I73.9 Peripheral vascular disease, unspecified; I25.810 Atherosclerosis of coronary artery bypass graft(s) without angina pectoris; I87.2 Venous insufficiency (chronic) (peripheral); E78.5 Hyperlipidemia, unspecified; I50.9 Heart failure, unspecified
CPT/HCPCS: G0463

== ENCOUNTER 2023-06-28 09:56 | Emergency (ER) | payer BC ==
[~2023-06-28] VITALS: Ht 182.9 cm; Wt 72.6 kg
[2023-06-28] MEDS ORDERED: Lidocaine 2% Jelly Uro-Jet UR ONE (11:00)
[2023-06-28 11:15] LABS: Source, Urine Clean Catch
[2023-06-28 11:25] LABS: Appearance, Urine Cloudy (Clear); Bilirubin, Urine Neg (Neg); Blood, Urine 5+ (Neg); Color, Urine Yellow (P-Yellow); Glucose Qualitative, Urine Neg (Neg); Ketones, Urine Neg (Neg); Leukocyte Esterase, Urine 3+ (Neg); Nitrite, Urine Neg (Neg); Protein, Urine 2+ (Neg); Urobilinogen, Urine NORM (Normal)
[2023-06-28 12:42] LABS: Triple Phosphate Crystals Few /hpf
[2023-06-28 12:43] LABS: Red Blood Cells, Urine 25-50 /hpf (0-2)
[2023-06-28 12:45] LABS: Amorphous Mod (0-Heavy); Bacteria Many /hpf; Squamous Epithelial Cells Not Seen /hpf (Few)
[2023-06-28] MEDS ORDERED: Bactrim Ds Tab1 EACH PO (12:57)
[2023-06-28 13:12] VITALS: BP 126/75
== END 2023-06-28 13:13 | disposition home or self-care (01) ==
LOC: ER 09:56
PROVIDERS: Physician Assistant
DX: T83.098A Other mechanical complication of other urinary catheter, initial encounter (principal); N39.0 Urinary tract infection, site not specified; Y73.2 Prosthetic and other implants, materials and accessory gastroenterology and urology devices associated with adverse incidents; Z95.0 Presence of cardiac pacemaker; I25.2 Old myocardial infarction; I11.0 Hypertensive heart disease with heart failure; I50.9 Heart failure, unspecified; I48.91 Unspecified atrial fibrillation; Z79.01 Long term (current) use of anticoagulants; Z79.899 Other long term (current) drug therapy; Z88.0 Allergy status to penicillin
CPT/HCPCS: 51702; 81001; 87077; 87086; 87186; 99283-25

== ENCOUNTER 2023-06-29 00:47 | Day surgery (SDC) | payer BC ==
[2023-06-29] MEDS ORDERED: Lidocaine HCl 4% Cream 5 GM ONE (13:43)
== END 2023-06-29 23:05 | disposition home or self-care (01) ==
LOC: WOUND 00:47
DX: I89.0 Lymphedema, not elsewhere classified (principal); L97.812 Non-pressure chronic ulcer of other part of right lower leg with fat layer exposed; L97.202 Non-pressure chronic ulcer of unspecified calf with fat layer exposed; I25.810 Atherosclerosis of coronary artery bypass graft(s) without angina pectoris; I73.9 Peripheral vascular disease, unspecified; I87.2 Venous insufficiency (chronic) (peripheral); E78.5 Hyperlipidemia, unspecified; I50.9 Heart failure, unspecified
CPT/HCPCS: A9270; G0463

== ENCOUNTER 2023-07-06 05:18 | Day surgery (SDC) | payer BC ==
[2023-07-06] MEDS ORDERED: Lidocaine HCl 4% Topical Soln 50 ML BTL ONE (09:59)
== END 2023-07-06 23:02 | disposition home or self-care (01) ==
LOC: WOUND 05:18
DX: L97.812 Non-pressure chronic ulcer of other part of right lower leg with fat layer exposed (principal); L97.202 Non-pressure chronic ulcer of unspecified calf with fat layer exposed; I25.810 Atherosclerosis of coronary artery bypass graft(s) without angina pectoris; I73.9 Peripheral vascular disease, unspecified; I87.2 Venous insufficiency (chronic) (peripheral); E78.5 Hyperlipidemia, unspecified
CPT/HCPCS: G0463

== ENCOUNTER 2023-09-06 12:09 | Emergency (ER) | payer BC ==
[~2023-09-06] VITALS: Ht 182.9 cm; Wt 68.0 kg
[2023-09-06 13:32] LABS: Source, Urine Foley catheter
[2023-09-06 13:48] LABS: Appearance, Urine Cloudy (Clear); Bilirubin, Urine Neg (Neg); Blood, Urine 5+ (Neg); Color, Urine Yellow (P-Yellow); Glucose Qualitative, Urine Neg (Neg); Ketones, Urine Neg (Neg); Leukocyte Esterase, Urine 3+ (Neg); Nitrite, Urine Pos (Neg); Protein, Urine 2+ (Neg); Urobilinogen, Urine NORM (Normal)
[2023-09-06 13:58] LABS: Bacteria Many /hpf; Red Blood Cells, Urine 50-100 /hpf (0-2); Squamous Epithelial Cells Rare /hpf (Few); Triple Phosphate Crystals Few /hpf; White Blood Cells, Urine 25-50 /hpf (0-5)
[2023-09-06 15:11] VITALS: BP 130/54
[2023-09-10] MEDS ORDERED: Bactrim Ds Tab1 EACH PO (14:48)
== END 2023-09-06 15:26 | disposition home or self-care (01) ==
LOC: ER 12:09
PROVIDERS: Student in an Organized Health Care Education/Training Program
DX: T83.091A Other mechanical complication of indwelling urethral catheter, initial encounter (principal); Z88.0 Allergy status to penicillin; Z79.899 Other long term (current) drug therapy; I11.0 Hypertensive heart disease with heart failure; I48.91 Unspecified atrial fibrillation; I50.9 Heart failure, unspecified
CPT/HCPCS: 51702; 81001; 87077; 87086; 87186; 99283

== ENCOUNTER 2023-10-04 06:05 | Day surgery (SDC) | payer OTHER | END 2023-10-04 23:28 | disposition home or self-care (01) | LOC: WOUND 06:05 | DX: I89.0 Lymphedema, not elsewhere classified (principal); L97.812 Non-pressure chronic ulcer of other part of right lower leg with fat layer exposed; I25.10 Atherosclerotic heart disease of native coronary artery without angina pectoris; I73.9 Peripheral vascular disease, unspecified; I87.2 Venous insufficiency (chronic) (peripheral); E78.5 Hyperlipidemia, unspecified; I11.0 Hypertensive heart disease with heart failure; I50.9 Heart failure, unspecified; J45.909 Unspecified asthma, uncomplicated; G47.30 Sleep apnea, unspecified; I25.2 Old myocardial infarction | CPT/HCPCS: G0463 ==

== ENCOUNTER → 2023-10-19 | Outpatient (CLI) | payer BC ==
[2023-10-23 10:57] LABS: Stool Occult Bld Immuno 1 Negative (NEGATIVE)
== END ==
LOC: LAB 17:46 → LAB SHORT 17:46
PROVIDERS: Registered Nurse Oncology
DX: D64.9 Anemia, unspecified (principal); N18.4 Chronic kidney disease, stage 4 (severe)
CPT/HCPCS: 82274

== ENCOUNTER 2023-11-08 03:09 | Day surgery (SDC) | payer OTHER, BC | END 2023-11-08 22:50 | disposition home or self-care (01) | LOC: WOUND 03:09 | DX: L97.812 Non-pressure chronic ulcer of other part of right lower leg with fat layer exposed (principal); L97.822 Non-pressure chronic ulcer of other part of left lower leg with fat layer exposed; I89.0 Lymphedema, not elsewhere classified; I25.810 Atherosclerosis of coronary artery bypass graft(s) without angina pectoris; I73.9 Peripheral vascular disease, unspecified; I87.2 Venous insufficiency (chronic) (peripheral); E78.5 Hyperlipidemia, unspecified; I50.9 Heart failure, unspecified | CPT/HCPCS: G0463 ==

== ENCOUNTER 2023-11-29 02:30 | Day surgery (SDC) | payer OTHER, BC | END 2023-11-30 22:50 | disposition home or self-care (01) | LOC: WOUND 02:30 | DX: I89.0 Lymphedema, not elsewhere classified (principal); I50.9 Heart failure, unspecified; I25.810 Atherosclerosis of coronary artery bypass graft(s) without angina pectoris; I73.9 Peripheral vascular disease, unspecified; I87.2 Venous insufficiency (chronic) (peripheral); L97.812 Non-pressure chronic ulcer of other part of right lower leg with fat layer exposed; E78.5 Hyperlipidemia, unspecified | CPT/HCPCS: G0463 ==

== ENCOUNTER 2023-12-02 19:24 | Emergency (ER) | payer BC ==
[~2023-12-02] VITALS: Ht 182.9 cm; Wt 77.1 kg
[2023-12-02 20:07] LABS: Source, Urine Foley catheter
[2023-12-02 20:11] LABS: Bilirubin, Urine Neg (Neg); Blood, Urine 5+ (Neg); Glucose Qualitative, Urine Neg (Neg); Ketones, Urine Neg (Neg); Leukocyte Esterase, Urine 3+ (Neg); Nitrite, Urine Pos (Neg); Protein, Urine 2+ (Neg); Urobilinogen, Urine NORM (Normal)
[2023-12-02 20:18] LABS: Appearance, Urine Hazy (Clear); Color, Urine Yellow (P-Yellow)
[2023-12-02 20:29] LABS: Bacteria Many /hpf; Squamous Epithelial Cells Not Seen /hpf (Few); Triple Phosphate Crystals Few /hpf; White Blood Cells, Urine 25-50 /hpf (0-5)
[2023-12-02] MEDS ORDERED: CEPH500 PO (21:15)
[2023-12-02] MEDS ORDERED: Cephalexin Monohydrate 500 MG Cap PO ONE (21:15)
[2023-12-02 21:30] VITALS: BP 165/88
== END 2023-12-02 21:33 | disposition home or self-care (01) ==
LOC: ER 19:24
PROVIDERS: Physician Assistant
DX: T83.091A Other mechanical complication of indwelling urethral catheter, initial encounter (principal); Y84.6 Urinary catheterization as the cause of abnormal reaction of the patient, or of later complication, without mention of misadventure at the time of the procedure; R33.9 Retention of urine, unspecified; N39.0 Urinary tract infection, site not specified; C61 Malignant neoplasm of prostate; I48.91 Unspecified atrial fibrillation; I11.0 Hypertensive heart disease with heart failure; I50.9 Heart failure, unspecified; I25.2 Old myocardial infarction; Z79.01 Long term (current) use of anticoagulants; Z88.0 Allergy status to penicillin; Z79.899 Other long term (current) drug therapy
CPT/HCPCS: 51702; 51798; 81001; 87077; 87086; 87186; 99283; A9270

== ENCOUNTER 2023-12-11 01:54 | Day surgery (SDC) | payer OTHER, BC | END 2023-12-11 23:16 | disposition home or self-care (01) | LOC: WOUND 01:54 | DX: I89.0 Lymphedema, not elsewhere classified (principal); I73.9 Peripheral vascular disease, unspecified; I87.2 Venous insufficiency (chronic) (peripheral); I50.9 Heart failure, unspecified; I25.10 Atherosclerotic heart disease of native coronary artery without angina pectoris; E78.5 Hyperlipidemia, unspecified | CPT/HCPCS: G0463 ==

== ENCOUNTER 2024-01-04 03:27 | Day surgery (SDC) | payer OTHER, BC | END 2024-01-04 23:46 | disposition home or self-care (01) | LOC: WOUND 03:27 | DX: L97.812 Non-pressure chronic ulcer of other part of right lower leg with fat layer exposed (principal); L97.802 Non-pressure chronic ulcer of other part of unspecified lower leg with fat layer exposed; I25.810 Atherosclerosis of coronary artery bypass graft(s) without angina pectoris; I73.9 Peripheral vascular disease, unspecified; I87.2 Venous insufficiency (chronic) (peripheral); E78.5 Hyperlipidemia, unspecified; I89.0 Lymphedema, not elsewhere classified | CPT/HCPCS: G0463 ==

== ENCOUNTER 2024-02-05 03:14 | Day surgery (SDC) | payer OTHER, BC | END 2024-02-05 23:00 | disposition home or self-care (01) | LOC: WOUND 03:14 | DX: L97.812 Non-pressure chronic ulcer of other part of right lower leg with fat layer exposed (principal); I73.9 Peripheral vascular disease, unspecified; I87.2 Venous insufficiency (chronic) (peripheral); I25.810 Atherosclerosis of coronary artery bypass graft(s) without angina pectoris; I25.2 Old myocardial infarction; I11.0 Hypertensive heart disease with heart failure; I50.9 Heart failure, unspecified; K50.90 Crohn's disease, unspecified, without complications; E78.5 Hyperlipidemia, unspecified | CPT/HCPCS: G0463 ==

== ENCOUNTER 2024-02-12 02:07 | Day surgery (SDC) | payer OTHER, BC | END 2024-02-12 23:08 | disposition home or self-care (01) | LOC: WOUND 02:07 | DX: L97.812 Non-pressure chronic ulcer of other part of right lower leg with fat layer exposed (principal); I89.0 Lymphedema, not elsewhere classified; I25.10 Atherosclerotic heart disease of native coronary artery without angina pectoris; I73.9 Peripheral vascular disease, unspecified; I87.2 Venous insufficiency (chronic) (peripheral); E78.5 Hyperlipidemia, unspecified; I50.9 Heart failure, unspecified | CPT/HCPCS: G0463 ==

== ENCOUNTER 2024-02-21 02:09 | Day surgery (SDC) | payer OTHER, BC | END 2024-02-22 02:47 | disposition home or self-care (01) | LOC: WOUND 02:09 | DX: I89.0 Lymphedema, not elsewhere classified (principal); L97.812 Non-pressure chronic ulcer of other part of right lower leg with fat layer exposed; I87.2 Venous insufficiency (chronic) (peripheral); I25.810 Atherosclerosis of coronary artery bypass graft(s) without angina pectoris; I73.9 Peripheral vascular disease, unspecified; E78.5 Hyperlipidemia, unspecified | CPT/HCPCS: G0463 ==

== ENCOUNTER 2024-02-26 02:42 | Day surgery (SDC) | payer OTHER, BC | END 2024-02-26 23:00 | disposition home or self-care (01) | LOC: WOUND 02:42 | DX: I89.0 Lymphedema, not elsewhere classified (principal); I25.810 Atherosclerosis of coronary artery bypass graft(s) without angina pectoris; I25.2 Old myocardial infarction; I87.2 Venous insufficiency (chronic) (peripheral); I73.9 Peripheral vascular disease, unspecified; I11.0 Hypertensive heart disease with heart failure; I50.9 Heart failure, unspecified; E78.5 Hyperlipidemia, unspecified | CPT/HCPCS: G0463 ==

== ENCOUNTER 2024-03-04 04:16 | Day surgery (SDC) | payer OTHER, BC | END 2024-03-04 23:15 | disposition home or self-care (01) | LOC: WOUND 04:16 | DX: L97.322 Non-pressure chronic ulcer of left ankle with fat layer exposed (principal); I50.9 Heart failure, unspecified; L97.812 Non-pressure chronic ulcer of other part of right lower leg with fat layer exposed; L97.802 Non-pressure chronic ulcer of other part of unspecified lower leg with fat layer exposed; I25.810 Atherosclerosis of coronary artery bypass graft(s) without angina pectoris; I73.9 Peripheral vascular disease, unspecified; I87.2 Venous insufficiency (chronic) (peripheral); E78.5 Hyperlipidemia, unspecified; I89.0 Lymphedema, not elsewhere classified | CPT/HCPCS: G0463 ==

== ENCOUNTER 2024-03-11 01:29 | Day surgery (SDC) | payer OTHER, BC | END 2024-03-11 23:00 | disposition home or self-care (01) | LOC: WOUND 01:29 | DX: L97.811 Non-pressure chronic ulcer of other part of right lower leg limited to breakdown of skin (principal); L97.322 Non-pressure chronic ulcer of left ankle with fat layer exposed; L97.812 Non-pressure chronic ulcer of other part of right lower leg with fat layer exposed; L97.802 Non-pressure chronic ulcer of other part of unspecified lower leg with fat layer exposed; I25.810 Atherosclerosis of coronary artery bypass graft(s) without angina pectoris; I73.9 Peripheral vascular disease, unspecified; I87.2 Venous insufficiency (chronic) (peripheral); E78.5 Hyperlipidemia, unspecified; I89.0 Lymphedema, not elsewhere classified | CPT/HCPCS: G0463 ==

== ENCOUNTER 2024-03-18 02:15 | Day surgery (SDC) | payer OTHER, BC | END 2024-03-18 23:00 | disposition home or self-care (01) | LOC: WOUND 02:15 | DX: L97.322 Non-pressure chronic ulcer of left ankle with fat layer exposed (principal); L97.811 Non-pressure chronic ulcer of other part of right lower leg limited to breakdown of skin; I87.2 Venous insufficiency (chronic) (peripheral); I73.9 Peripheral vascular disease, unspecified; I25.810 Atherosclerosis of coronary artery bypass graft(s) without angina pectoris; I25.2 Old myocardial infarction; E78.5 Hyperlipidemia, unspecified; I89.0 Lymphedema, not elsewhere classified | CPT/HCPCS: G0463 ==

== ENCOUNTER 2024-03-25 02:01 | Day surgery (SDC) | payer OTHER, BC | END 2024-03-25 23:00 | disposition home or self-care (01) | LOC: WOUND 02:01 | DX: L97.322 Non-pressure chronic ulcer of left ankle with fat layer exposed (principal); L97.811 Non-pressure chronic ulcer of other part of right lower leg limited to breakdown of skin; I25.10 Atherosclerotic heart disease of native coronary artery without angina pectoris; I25.2 Old myocardial infarction; I11.0 Hypertensive heart disease with heart failure; I50.9 Heart failure, unspecified | CPT/HCPCS: G0463 ==

== ENCOUNTER 2024-04-21 19:37 | Emergency (ER) | payer BC ==
[~2024-04-21] VITALS: Ht 182.9 cm; Wt 72.6 kg
[2024-04-21] MEDS ORDERED: Lidocaine 2% Jelly Uro-Jet TOP ONE (20:25)
[2024-04-21 20:45] LABS: Source, Urine Clean Catch
[2024-04-21 20:55] LABS: Bilirubin, Urine Neg (Neg); Blood, Urine 5+ (Neg); Glucose Qualitative, Urine Neg (Neg); Ketones, Urine Neg (Neg); Leukocyte Esterase, Urine 3+ (Neg); Nitrite, Urine Neg (Neg); Protein, Urine 3+ (Neg); Specific Gravity, Urine 1.005 (1.003-1.022); Urobilinogen, Urine NORM (Normal)
[2024-04-21 21:01] LABS: Appearance, Urine Cloudy (Clear); Color, Urine Yellow (P-Yellow)
[2024-04-21 21:02] LABS: Amorphous Light (0-Heavy); Bacteria Many /hpf; Red Blood Cells, Urine 50-100 /hpf (0-2); Squamous Epithelial Cells Few /hpf (Few); White Blood Cells, Urine 50-100 /hpf (0-5)
[2024-04-21 21:11] LABS: BASOPHILS ABSOLUTE AUTO 0.02 K/mm3 (0.00-0.23); BASOPHILS PERCENT AUTO 0 % (0-2); EOSINOPHILS ABSOLUTE AUTO 0.06 K/mm3 (0.00-0.68); EOSINOPHILS PERCENT AUTO 1 % (0-6); Hematocrit 33.5 % (37.0-53.0); Hemoglobin 11.6 g/dL (13.5-17.5); IMMATURE GRAN ABSOLUTE AUTO 0.02 K/mm3 (0.00-0.10); IMMATURE GRAN PERCENT AUTO 0 % (0-1); LYMPHOCYTES ABSOLUTE AUTO 0.66 K/mm3 (0.84-5.20); LYMPHOCYTES PERCENT AUTO 11 % (21-46); MONOCYTES ABSOLUTE AUTO 0.67 K/mm3 (0.16-1.47); MONOCYTES PERCENT AUTO 11 % (4-13); Mean Corpuscular HGB Conc 34.6 g/dL (31.5-36.5); Mean Corpuscular Volume 93 fL (80-100); Mean Platelet Volume 9.9 fL (9.1-12.4); NEUTROPHILS ABSOLUTE AUTO 4.59 K/mm3 (1.96-9.15); NEUTROPHILS PERCENT AUTO 76 % (41-73); Platelet Count 117 K/mm3 (150-400); RDW Coefficient Variation 12.6 % (11.7-14.2); RDW Standard Deviation 42.8 fL (35.1-46.3); Red Blood Cell Count 3.62 M/mm3 (4.30-5.90); White Blood Cell Count 6.02 K/mm3 (4.00-11.30)
[2024-04-21 21:37] LABS: Albumin, Blood 3.4 g/dL (3.4-5.0); Albumin/Globulin Ratio 0.8 (0.8-1.8); Bilirubin, Total 0.7 mg/dL (0.1-1.0); Bun/Creatinine Ratio 15.5 (12.0-20.0); Calcium, Blood 9.4 mg/dL (8.5-10.1); Creatinine, Blood 1.74 mg/dL (0.60-1.20); Globulin, Blood 4.3 g/dL (2.2-4.0); Magnesium, Blood 1.9 mg/dL (1.6-2.4); Potassium, Blood 3.5 mmol/L (3.5-5.5); Total Protein, Blood 7.7 g/dL (6.4-8.2)
[2024-04-21 22:15] VITALS: BP 166/75
[2024-04-21] MEDS ORDERED: CefTRIAXone Sodium 1,000 MG in NS 50 ML IV ONE (22:45)
[2024-04-21] MEDS ORDERED: Mag Hydrox/AL Hydrox/Simeth 30 ML UDC PO ONE (22:55)
[2024-04-21] MEDS ORDERED: CEFD300 PO (22:57)
== END 2024-04-21 23:40 | disposition home or self-care (01) ==
LOC: ER 19:37
PROVIDERS: Student in an Organized Health Care Education/Training Program
DX: T83.098A Other mechanical complication of other urinary catheter, initial encounter (principal); N39.0 Urinary tract infection, site not specified; I11.0 Hypertensive heart disease with heart failure; I50.9 Heart failure, unspecified; Z88.0 Allergy status to penicillin; Z79.01 Long term (current) use of anticoagulants; Z79.899 Other long term (current) drug therapy; Y73.8 Miscellaneous gastroenterology and urology devices associated with adverse incidents, not elsewhere classified
CPT/HCPCS: 51702; 80053; 81001; 83735; 85025; 87077; 87086; 87186; 93005; 93010; 96365-59; 99283-25; A9270; J0696

== ENCOUNTER 2024-05-16 23:45 | Emergency (ER) | payer BC ==
[~2024-05-16] VITALS: Ht 195.6 cm; Wt 72.6 kg
[~2024-05-16 23:45] MED LIST changes: +CEFD300 PO
[2024-05-17 00:35] VITALS: BP 152/85
[2024-05-17] MEDS ORDERED: Lidocaine 2% Jelly Uro-Jet UR ONE (00:45)
[2024-05-17 01:10] LABS: Source, Urine Foley catheter
[2024-05-17 01:50] LABS: Appearance, Urine Hazy (Clear); Bilirubin, Urine Neg (Neg); Blood, Urine 5+ (Neg); Color, Urine Brown (P-Yellow); Glucose Qualitative, Urine Neg (Neg); Ketones, Urine Neg (Neg); Leukocyte Esterase, Urine 3+ (Neg); Nitrite, Urine Pos (Neg); Protein, Urine 3+ (Neg); Urobilinogen, Urine NORM (Normal)
[2024-05-17 02:07] LABS: Bacteria Many /hpf; Red Blood Cells, Urine TNTC /hpf (0-2); Squamous Epithelial Cells Few /hpf (Few); White Blood Cells, Urine 25-50 /hpf (0-5)
[2024-05-17] MEDS ORDERED: LEVO750 PO (02:19)
== END 2024-05-17 02:37 | disposition home or self-care (01) ==
LOC: ER 23:45
PROVIDERS: Student in an Organized Health Care Education/Training Program
DX: T83.511A Infection and inflammatory reaction due to indwelling urethral catheter, initial encounter (principal); N30.90 Cystitis, unspecified without hematuria; Z88.0 Allergy status to penicillin; I11.0 Hypertensive heart disease with heart failure; I50.9 Heart failure, unspecified; Z79.01 Long term (current) use of anticoagulants; Z79.1 Long term (current) use of non-steroidal anti-inflammatories (NSAID); Z79.899 Other long term (current) drug therapy; I48.91 Unspecified atrial fibrillation; I25.2 Old myocardial infarction; Z95.1 Presence of aortocoronary bypass graft
CPT/HCPCS: 51702; 51798; 81001; 87086; 99282-25